=== PATIENT | female | born 1970 ===

== ENCOUNTER 2017-08-16 09:05 | Emergency (ER) | payer OTHER ==
[2017-08-16 09:12] VITALS: TEMP 97.7
--- NOTE | 2017-08-16 09:42 | C.PDOC ---
History Of Present Illness 47 y/o female presents to the ED for evaluation of left-sided upper back pain which began yesterday. Patient states pain began while she was removing clothing. She states pain is localized and worse with movement. Patient found minimal relief with Motrin. Denies trauma, or any other associated symptoms. Patient has not taken medicine [employer]. L UPPER BACK PAIN SINCE YEST. ONSET WHILE REMOVING CLOTHING. LOCALIZED WORSE W MOVEMENT. MIN RELIEF W MOTRIN. NO TRAUMA. NO OTHER ASSOC SX. NO MEDS TAKEN [employer] EXAM MILD DIST NONTOXIC BACK +SPASM L UPPER BACK W LOCAL TEND, REPRODUC PAIN. LIMITED ROM DUE TO PAIN. NO FOCAL SPINAL TEND NEURO NO FOCAL DEF Time Seen by Provider: 08/16/17 09:29 Chief Complaint (Nursing): Back Pain History Per: Patient History/Exam Limitations: no limitations Onset/Duration Of Symptoms: Hrs Current Symptoms Are (Timing): Still Present Quality Of Discomfort: "Pain" Previous Symptoms: Back Pain Associated Symptoms: denies: Incontinence, New Weakness, New Numbness Exacerbating Factor(s): Movement Additional History Per: Patient Past Medical History Reviewed: Historical Data, Nursing Documentation, Vital Signs Vital Signs: Last Vital Signs Temp 97.7 F 08/16/17 09:09 Pulse 70 08/16/17 09:59 Resp 16 08/16/17 09:59 BP 108/68 08/16/17 09:59 Pulse Ox 98 08/16/17 09:59 - Medical History PMH: Depression, Migraine Surgical History: No Surg Hx Family History: States: Unknown Family Hx - Social History Hx Tobacco Use: No Hx Alcohol Use: No Hx Substance Use: No - Immunization History Hx Tetanus Toxoid Vaccination: No Hx Influenza Vaccination: No Hx Pneumococcal Vaccination: No Review Of Systems Musculoskeletal: Positive for: Back Pain (left-sided, upper ) Neurological: Negative for: Weakness, Numbness Physical Exam - Physical Exam Appears: Non-toxic, No Acute Distress Skin: Normal Color, Warm, Dry Head: Atraumatic, Normacephalic Eye(s): bilateral: Normal Inspection Neck: Supple Chest: Symmetrical, No Deformity, No Tenderness Cardiovascular: Rhythm Regular Respiratory: Normal Breath Sounds Back: Decreased ROM (due to pain ), Muscle Spasm (to left upper back with localized tenderness and reproducible pain ), No Other (focal spinal tenderness ) Extremity: Normal ROM, Capillary Refill (less than 2 seconds ) Neurological/Psych: Oriented x3, Normal Speech, Normal Cognition, Normal Sensation Gait: Steady ED Course And Treatment O2 Sat by Pulse Oximetry: 100 (on RA) Pulse Ox Interpretation: Normal Progress Note: Flexeril PO, Lidoderm TD, Toradol IM and Tylenol PO administered. Disposition Counseled Patient/Family Regarding: Diagnosis, Need For Followup, Rx Given - Disposition Referrals: YOUR,PMD [Other] Disposition: HOME/ ROUTINE Disposition Time: 09:41 Condition: IMPROVED Additional Instructions: APLICA PARCHE AL FADI AFECTADA. MAX 3 PARCHES A LA VEZ. RETIRE EL PATCH 12 HORAS DESPUS DE LA APLICACIN INICIAL. ALTERNATIVAS 12 HORAS ACTIVADAS, 12 HORAS DESACTIVADAS. Prescriptions: Acetaminophen [Tylenol Extra Strength] 2 tab PO Q6 #30 tablet Cyclobenzaprine [Flexeril] 10 mg PO TID #15 tab Ibuprofen [Motrin] 600 mg PO Q6 #30 tab Lidocaine 5% [Lidoderm] 1 ea TD PRN PRN #10 patch PRN Reason: Pain, Moderate (4-7) Instructions: Low Back Pain (DC) Forms: [employer] (Japanese) Print Language: SRI LANKAN - Clinical Impression Clinical Impression: Back pain - Scribe Statement The provider has reviewed the documentation as recorded by the Scribe (pradip ariza) Provider Attestation: All medical record entries made by the Scribe were at my direction and personally dictated by me. I have reviewed the chart and agree that the record accurately reflects my personal performance of the history, physical exam, medical decision making, and the department course for this patient. I have also personally directed, reviewed, and agree with the discharge instructions and disposition.
[2017-08-16] MEDS ORDERED: Lidocaine 5% Patch TD STA (09:43)
[2017-08-16] MEDS ORDERED: Lidocaine 5% Patch TD ONE (09:48)
[2017-08-16 10:00] VITALS: BP 108/68; PULSE 70; RESP 16
[2017-08-16 15:36] VITALS: O2SAT 100
== END 2017-08-16 09:59 | disposition home or self-care (01) ==
LOC: C.ER 09:05
DX: M54.89 Other dorsalgia (principal)
CPT/HCPCS: 96372; 99283; J1885

== ENCOUNTER 2018-04-12 07:11 | Emergency (ER) | payer OTHER ==
[2018-04-12] MEDS ORDERED: Sodium Chloride 0.9% 1,000 ML IV ONE (07:50)
[2018-04-12 08:07] LABS: BASO # 0.1 K/uL (0.0-0.2); BASO % 0.5 % (0.0-2.0); EOS # 0.2 K/uL (0.0-0.7); EOS % 1.9 % (0.0-4.0); HEMOGLOBIN 13.2 g/dL (11.0-16.0); LYMPH # 1.8 K/uL (1.0-4.3); LYMPH % 14.8 % (20.0-40.0); MEAN CELL VOLUME 82.8 fL (81.0-99.0); MEAN CORPUSCULAR HEMOGLOBIN 27.9 pg (27.0-31.0); MEAN CORPUSCULAR HGB CONC 33.7 g/dL (33.0-37.0); MEAN PLATELET VOLUME 9.4 fL (7.2-11.7); MONO # 0.6 K/uL (0.0-0.8); MONO % 5.2 % (0.0-10.0); NEUT # 9.4 K/uL (1.8-7.0); NEUT % 77.6 % (50.0-75.0); RBC 4.73 Mil/uL (3.80-5.20); WHITE BLOOD COUNT 12.1 K/uL (4.8-10.8)
[2018-04-12 08:16] LABS: ALB/GLOB RATIO 1.3 (1.0-2.1); ALBUMIN 4.4 g/dL (3.5-5.0); ALT/SGPT 20 U/L (9-52); AST/SGOT 21 U/L (14-36); BLOOD UREA NITROGEN 16 mg/dL (7-17); CALCIUM 9.3 mg/dl (8.6-10.4); GFR NON-AFRICAN AMERICAN > 60; LIPASE 53 U/L (23-300)
[2018-04-12 09:08] LABS: SQUAMOUS EPITHIAL < 1 /hpf (0-5); URINE BILIRUBIN NEGATIVE (NEGATIVE); URINE BLOOD 3+ (NEGATIVE); URINE CLARITY Hazy (Clear); URINE COLOR Yellow (YELLOW); URINE GLUCOSE (UA) NORMAL (Normal); URINE LEUKOCYTE ESTERASE NEG Leu/uL (Negative); URINE PROTEIN NEGATIVE (NEGATIVE); URINE UROBILINOGEN NORMAL mg/dL (0.2-1.0)
[2018-04-12] MEDS ORDERED: Iodixanol 320 MG/ML 100 ML BOTTLE IV ONE (09:28)
--- NOTE | 2018-04-12 10:04 | CT ---
Date of service: 04/12/2018 PROCEDURE: CT Abdomen and Pelvis with contrast HISTORY: LUQ tenderness COMPARISON: None. TECHNIQUE: CT scan of the abdomen and pelvis was performed after administration of intravenous contrast. Oral contrast was not administered. Coronal and sagittal reformatted images were obtained. Contrast dose: 100 mL Visipaque Radiation dose: Total exam DLP = 628.01 mGy-cm. This CT exam was performed using one or more of the following dose reduction techniques: Automated exposure control, adjustment of the mA and/or kV according to patient size, and/or use of iterative reconstruction technique. FINDINGS: LOWER THORAX: Visualized lungs are clear. LIVER: Mild hepatomegaly and fatty liver. No gross lesion or ductal dilatation. GALLBLADDER AND BILE DUCTS: No calcified gallstones. PANCREAS: Normal in size with homogeneous enhancement. No gross lesion or ductal dilatation. SPLEEN: Normal in size and appearance. ADRENALS: No discrete nodule. KIDNEYS AND URETERS: Normal in size with homogeneous. No hydronephrosis. No solid mass. VASCULATURE: Unremarkable. No aortic aneurysm. BOWEL: There are fluid filled normal caliber small bowel loops. There is colonic diverticulosis without CT evidence for acute diverticulitis. There is mild circumferential mural thickening in the colon without micro perforation or abscess. APPENDIX: Normal appendix. PERITONEUM: No free fluid. No free air. LYMPH NODES: No enlarged lymph nodes. BLADDER: Grossly normal in appearance. REPRODUCTIVE: The uterus is bulky. There is a 2.0 cm hypoenhancing round lesion in the left adnexa. BONES: No acute fracture. Within normal limits for the patient's age. OTHER FINDINGS: None. IMPRESSION: Findings are most compatible with nonspecific acute infectious/inflammatory enteritis and colitis. No evidence for bowel obstruction. Colonic diverticulosis without CT evidence for acute diverticulitis. Mild hepatomegaly and fatty liver.
--- NOTE | 2018-04-12 10:22 | C.PDOC ---
History Of Present Illness [id number], presents to the emergency department with complaints of left-sided abdominal pain, associated with multiple episodes of non-bloody diarrhea since this morning. patient denies any nausea/vomiting, fever or chills. No recent travel or sick contacts. No other complaints at this time. Time Seen by Provider: 04/12/18 07:26 Chief Complaint (Nursing): Abdominal Pain History Per: Patient History/Exam Limitations: no limitations Past Medical History Reviewed: Historical Data, Nursing Documentation, Vital Signs Vital Signs: Last Vital Signs Temp 98.7 F 04/12/18 07:21 Pulse 89 04/12/18 07:21 Resp 18 04/12/18 07:21 BP 117/80 04/12/18 07:21 Pulse Ox 100 04/12/18 07:21 - Medical History PMH: Depression, Migraine Family History: States: No Known Family Hx - Social History Hx Tobacco Use: No Hx Alcohol Use: No Hx Substance Use: No - Immunization History Hx Tetanus Toxoid Vaccination: No Hx Influenza Vaccination: No Hx Pneumococcal Vaccination: No Review Of Systems Constitutional: Negative for: Fever Cardiovascular: Negative for: Chest Pain, Palpitations Respiratory: Negative for: Shortness of Breath Gastrointestinal: Positive for: Abdominal Pain, Diarrhea. Negative for: Nausea, Vomiting, Hematochezia, Hematemesis Skin: Negative for: Rash Neurological: Negative for: Weakness, Headache, Dizziness Physical Exam - Physical Exam Appears: Non-toxic, No Acute Distress Skin: Normal Color, Warm, Dry, No Rash Head: Atraumatic, Tenderness Eye(s): bilateral: Normal Inspection, PERRL, EOMI Nose: Normal Oral Mucosa: Moist Lips: Normal Appearing Neck: Normal ROM Chest: Symmetrical Cardiovascular: Rhythm Regular, No Murmur Respiratory: Normal Breath Sounds, No Accessory Muscle Use Gastrointestinal/Abdominal: Soft, Tenderness (left-sided), No Guarding, No Rebound Extremity: Normal ROM, No Deformity Neurological/Psych: Oriented x3, Normal Speech ED Course And Treatment - Laboratory Results Result Diagrams: 04/12/18 07:57 04/12/18 07:57 O2 Sat by Pulse Oximetry: 100 Pulse Ox Interpretation: Normal (RA) Disposition - Disposition Referrals: [facility] Noel Frank, [Non-Staff] - Disposition: HOME/ ROUTINE Disposition Time: 10:10 Condition: GOOD Additional Instructions: JUAN WALSH, thank you for letting us take care of you today. The emergency medical care you received today was directed at your acute symptoms. If you were prescribed any medication, please fill it and take as directed. It may take several days for your symptoms to resolve. Return to the Emergency Department if your symptoms worsen, do not improve, or if you have any other problems. Please contact your doctor or call one of the physicians/clinics you have been referred to that are listed on the Patient Visit Information form that is included in your discharge packet. Bring any paperwork you were given at discharge with you along with any medications you are taking to your follow up visit. Our treatment cannot replace ongoing medical care by a primary care provider outside of the emergency department. Thank you for allowing the [facility] team to be part of your care today. Follow up with your primary care doctor in 3-4 days for re-evaluation and further management. JUAN WALSH, obinna por dejarnos cuidar de shawna barrios. La atencin mdica de emergencia que recibi hoy se dirigi a quiana sntomas agudos. Si le recetaron algn medicamento, llnelo y tmelo segn las indicaciones. Los sntomas pueden tardar varios borja en resolverse. Regrese al Departamento de Emergencias si quiana sntomas empeoran, no mejoran o si tiene otros problemas. Comunquese con smith mdico o llame a sai de los mdicos / clnicas a los que addison sido referido que figuran en el formulario de Informacin de visita al paciente que se incluye en smith paquete de yusuf. Lleve con usted a smith consulta de seguimiento toda la documentacin que recibi del yusuf junto con los medicamentos que est tomando. Nuestro tratamiento no puede reemplazar la atencin mdica continua por parte de un proveedor de atencin primaria fuera del departamento de emergencias. Obinna por permitir que el equipo de [facility] sea parte de smith atencin hoemily. Yocasta un seguimiento con smith mdico de atencin primaria en 3 a 4 borja para damian reevaluacin y manejo adicional. Prescriptions: Ciprofloxacin [Cipro] 500 mg PO BID #14 tab Ibuprofen [Motrin] 600 mg PO Q6 PRN #20 tab PRN Reason: Pain, Moderate (4-7) metroNIDAZOLE [Flagyl] 500 mg PO Q8 #21 tab Instructions: Acute Abdomen (Belly Pain), Adult (DC) Forms: Gen Discharge Inst Moroccan, [employer] (Moroccan) Print Language: AMERICAN - Clinical Impression Clinical Impression: Abdominal pain - Scribe Statement The provider has reviewed the documentation as recorded by the Scribe (Rolly Mcfarland) Provider Attestation: All medical record entries made by the Scribe were at my direction and personally dictated by me. I have reviewed the chart and agree that the record accurately reflects my personal performance of the history, physical exam, medical decision making, and the department course for this patient. I have also personally directed, reviewed, and agree with the discharge instructions and disposition.
[2018-04-12 10:31] VITALS: BP 119/89; PULSE 71; RESP 15; TEMP 98
[2018-04-12 11:42] VITALS: O2SAT 100
== END 2018-04-12 10:30 | disposition home or self-care (01) ==
LOC: C.ER 07:11
DX: R10.9 Unspecified abdominal pain (principal)
CPT/HCPCS: 74177; 80053; 81001; 83690; 85025; 96361; 96374; 99284; J7030; Q9967

== ENCOUNTER 2018-08-17 15:26 | Outpatient (CLI) | payer OTHER | END 2018-08-17 15:27 | disposition home or self-care (01) | LOC: C.MAMMO 15:26 | DX: Z12.31 Encounter for screening mammogram for malignant neoplasm of breast (principal) ==